=== PATIENT | female | born 1965 | race Caucasian/White ===

== ENCOUNTER → 2019-08-27 | Outpatient (CLI) | payer BC | LOC: COL.RAD 08:00 | DX: M25.572 Pain in left ankle and joints of left foot (principal); M25.571 Pain in right ankle and joints of right foot | CPT/HCPCS: J3301; Q9967 ==

== ENCOUNTER → 2020-02-29 | Outpatient (CLI) | payer BC | LOC: COL.RAD 09:45 | DX: M79.671 Pain in right foot (principal); M79.672 Pain in left foot | CPT/HCPCS: J3301; Q9967 ==